=== PATIENT | female | born 1955 | race Two or more races ===

== ENCOUNTER 2018-03-16 21:03 | Inpatient (IN) | payer MEDICAID ==
[~2018-03-16] VITALS: Ht 165.1 cm; Wt 78.5 kg
[2018-03-16 21:29] LABS: BASOPHILS % (AUTO) 0.5 % (0.0-2.0); EOSINOPHILS % (AUTO) 2.7 % (0.0-6.0); HEMATOCRIT 40 % (33-45); HEMOGLOBIN 13.8 g/dL (11.5-14.8); LYMPHOCYTES # (AUTO) 2.1 /CMM (0.8-4.8); LYMPHOCYTES % (AUTO) 29.6 % (20.0-44.0); MEAN CORPUSCULAR HEMOGLOBIN 32 PG (26.0-33.0); MEAN CORPUSCULAR HGB CONC 35 g/dl (31.0-36.0); MEAN CORPUSCULAR VOLUME 92 fL (82-100); MONOCYTES # (AUTO) 0.4 /CMM (0.1-1.30); MONOCYTES % (AUTO) 5.7 % (2.0-12.0); NEUTROPHILS # (AUTO) 4.4 /CMM (1.8-8.9); NEUTROPHILS % (AUTO) 61.5 % (43.0-81.0); PLATELET COUNT (AUTO) 176 /CMM (150-450); RDW COEFFICIENT OF VARIATION 12.1 (11.5-15.0); RED BLOOD CELL COUNT(AUTO) 4.35 MIL/uL (4.0-5.2); WHITE BLOOD COUNT (AUTO) 7.1 K/uL (4.3-11.0)
[2018-03-16 21:39] LABS: CALCIUM, SERUM 8.7 mg/dL (8.5-10.1); CARBON DIOXIDE 27 mmol/L (21-32); CHLORIDE 104 mmol/L (98-107); CREATININE 0.9 mg/dL (0.6-1.3); GLUCOSE 99 mg/dL (74-106); POTASSIUM 3.2 mmol/L (3.5-5.1); SODIUM SERUM 139 mmol/L (136-145); UREA NITROGEN, BLOOD 17 mg/dL (7-18)
[2018-03-16 21:41] LABS: INR 0.98 (0.85-1.15)
[2018-03-16 21:48] LABS: TROPONIN I < 0.017 ng/mL (0.00-0.056)
[2018-03-16] MEDS ORDERED: POTASSIUM CHLORIDE 20 MEQ TAB.PRT.SR PO ONE (23:55)
[2018-03-17] VITALS (8 sets, daily range): BP systolic 135–171; BP diastolic 74–91
[2018-03-17] MEDS ORDERED: POTASSIUM CHLORIDE 20 MEQ TAB.PRT.SR PO ONE
[2018-03-17] MEDS ORDERED: ASPIRIN 325 MG TABLET PO ONE (00:30)
[2018-03-17] MEDS ORDERED: ONDANSETRON HCL/PF 4 MG/2 ML VIAL IVP PRN ×2 (00:30→00:45)
[2018-03-17] MEDS ORDERED: ENOXAPARIN SODIUM 40 MG/0.4 ML DISP.SYRIN SQ SCH (00:30)
[2018-03-17] MEDS ORDERED: Z GUARD REMEDY 2 OZ OINT TP PRN ×2 (00:30→00:45)
[2018-03-17] MEDS ORDERED: HYDROCODONE/APAP 5/325MG 1 EACH TABLET PO PRN ×2 (00:30→00:45)
[2018-03-17] MEDS ORDERED: MAGNESIUM HYDROXIDE 30 ML UDC PO PRN ×2 (00:30→00:45)
[2018-03-17] MEDS ORDERED: CLONIDINE HCL 0.1 MG TABLET PO PRN ×2 (00:30→00:45)
[2018-03-17] MEDS ORDERED: MAG HYDROX/AL HYDROX/SIMETH 30 ML UDC PO PRN ×2 (00:30→00:45)
[2018-03-17] MEDS ORDERED: ACETAMINOPHEN 325 MG TABLET PO PRN ×2 (00:30→00:45)
[2018-03-17] MEDS ORDERED: ASPIRIN 325 MG TABLET ONE (00:38)
[2018-03-17] MEDS ORDERED: BLOOD SUGAR DIAGNOSTIC 1 EACH STRIP IN SCH ×3 (06:00→07:30)
[2018-03-17 06:11] LABS: BASOPHILS % (AUTO) 0.1 % (0.0-2.0); EOSINOPHILS % (AUTO) 4.1 % (0.0-6.0); HEMATOCRIT 39 % (33-45); HEMOGLOBIN 13.1 g/dL (11.5-14.8); LYMPHOCYTES # (AUTO) 1.7 /CMM (0.8-4.8); LYMPHOCYTES % (AUTO) 30.2 % (20.0-44.0); MEAN CORPUSCULAR HEMOGLOBIN 31 PG (26.0-33.0); MEAN CORPUSCULAR HGB CONC 34 g/dl (31.0-36.0); MEAN CORPUSCULAR VOLUME 92 fL (82-100); MONOCYTES # (AUTO) 0.5 /CMM (0.1-1.30); MONOCYTES % (AUTO) 8.4 % (2.0-12.0); NEUTROPHILS # (AUTO) 3.3 /CMM (1.8-8.9); NEUTROPHILS % (AUTO) 57.2 % (43.0-81.0); PLATELET COUNT (AUTO) 149 /CMM (150-450); RDW COEFFICIENT OF VARIATION 12.7 (11.5-15.0); WHITE BLOOD COUNT (AUTO) 5.7 K/uL (4.3-11.0)
[2018-03-17 06:19] LABS: INR 0.96 (0.87-1.13)
[2018-03-17 06:32] LABS: ALBUMIN 3.5 g/dL (3.4-5.0); BILIRUBIN,TOTAL 0.8 mg/dL (0.2-1.0); CALCIUM, SERUM 8.3 mg/dL (8.5-10.1); CREATININE 0.7 mg/dL (0.6-1.3); POTASSIUM 3.8 mmol/L (3.5-5.1); TOTAL PROTEIN, SERUM 6.8 g/dL (6.4-8.2)
[2018-03-17 06:36] LABS: THYROID STIMULATING HORMONE 1.737 uIU/mL (0.358-3.74)
[2018-03-17] MEDS: BLOOD SUGAR DIAGNOSTIC 1 EACH STRIP IN SCH ×4 (07:49→22:30)
[2018-03-17] MEDS ORDERED: BUPR-51 PO (08:10)
[2018-03-17] MEDS ORDERED: TRAZ-213 PO (08:10)
[2018-03-17] MEDS ORDERED: TEMA30CA PO (08:10)
[2018-03-17] MEDS ORDERED: MULT-24 PO (08:10)
[2018-03-17] MEDS ORDERED: CITA20TA19 PO (08:10)
[2018-03-17] MEDS: ASPIRIN EC 325 MG TABLET.DR PO SCH (08:47)
[2018-03-17] MEDS: ATORVASTATIN 10 MG TABLET PO SCH (08:47)
[2018-03-17] MEDS: VALSARTAN 80 MG TABLET PO SCH (08:47)
[2018-03-17] MEDS: ENOXAPARIN SODIUM 40 MG/0.4 ML DISP.SYRIN SQ SCH (08:49)
[2018-03-17] MEDS ORDERED: ASPIRIN EC 325 MG TABLET.DR PO SCH (09:00)
[2018-03-17 09:31] LABS: THYROID STIMULATING HORMONE 1.733 uIU/mL (0.358-3.74)
[2018-03-17] MEDS ORDERED: TEMAZEPAM 15 MG CAPSULE PO ONE (22:00)
[2018-03-18] VITALS: BP 157/91
[2018-03-18 00:40] VITALS: BP 157/91
[2018-03-18 04:00] VITALS: BP 143/72
[2018-03-18 04:28] VITALS: BP 143/72
[2018-03-18 06:00] LABS: BASOPHILS % (AUTO) 0.5 % (0.0-2.0); EOSINOPHILS % (AUTO) 4.4 % (0.0-6.0); HEMATOCRIT 39 % (33-45); HEMOGLOBIN 13.3 g/dL (11.5-14.8); LYMPHOCYTES # (AUTO) 1.4 /CMM (0.8-4.8); LYMPHOCYTES % (AUTO) 28.5 % (20.0-44.0); MEAN CORPUSCULAR HEMOGLOBIN 31 PG (26.0-33.0); MEAN CORPUSCULAR HGB CONC 34 g/dl (31.0-36.0); MEAN CORPUSCULAR VOLUME 91 fL (82-100); MONOCYTES # (AUTO) 0.4 /CMM (0.1-1.30); MONOCYTES % (AUTO) 7.4 % (2.0-12.0); NEUTROPHILS % (AUTO) 59.2 % (43.0-81.0); PLATELET COUNT (AUTO) 152 /CMM (150-450); RED BLOOD CELL COUNT(AUTO) 4.28 MIL/uL (4.0-5.2); WHITE BLOOD COUNT (AUTO) 5.1 K/uL (4.3-11.0)
[2018-03-18 06:20] LABS: ALANINE AMINOTRANSFERASE 19 U/L (12-78); ALBUMIN 3.4 g/dL (3.4-5.0); ALKALINE PHOSPHATASE 58 U/L (46-116); ASPARTATE AMINOTRANSFERASE 14 U/L (15-37); BILIRUBIN,TOTAL 0.9 mg/dL (0.2-1.0); CALCIUM, SERUM 8.7 mg/dL (8.5-10.1); CARBON DIOXIDE 28 mmol/L (21-32); CHLORIDE 106 mmol/L (98-107); CREATININE 0.6 mg/dL (0.6-1.3); GLUCOSE 104 mg/dL (74-106); MAGNESIUM 2.2 mg/dL (1.8-2.4); PHOSPHORUS 4.3 mg/dL (2.5-4.9); POTASSIUM 3.5 mmol/L (3.5-5.1); SODIUM SERUM 142 mmol/L (136-145); TOTAL PROTEIN, SERUM 6.6 g/dL (6.4-8.2); UREA NITROGEN, BLOOD 14 mg/dL (7-18)
[2018-03-18 06:23] LABS: TROPONIN I < 0.017 ng/mL (0.00-0.056)
[2018-03-18] MEDS: BLOOD SUGAR DIAGNOSTIC 1 EACH STRIP IN SCH ×3 (06:30→17:23)
[2018-03-18] MEDS ORDERED: ERGOCALCIFEROL (VITAMIN D 2) 50,000 UNIT CAPSULE PO SCH (07:30)
[2018-03-18 08:00] VITALS: BP 152/79
[2018-03-18] MEDS ORDERED: REGADENOSON 0.4 MG/5 ML DISP.SYRIN IVP ONE (08:00)
[2018-03-18] MEDS ORDERED: AMLODIPINE BESYLATE 10 MG TABLET PO SCH (09:00)
[2018-03-18] MEDS: ASPIRIN EC 325 MG TABLET.DR PO SCH (09:26)
[2018-03-18] MEDS: VALSARTAN 80 MG TABLET PO SCH (09:27)
[2018-03-18] MEDS: ATORVASTATIN 10 MG TABLET PO SCH (09:27)
[2018-03-18] MEDS: ENOXAPARIN SODIUM 40 MG/0.4 ML DISP.SYRIN SQ SCH (09:28)
[2018-03-18] MEDS ORDERED: VALS80TA2 PO (12:15)
[2018-03-18] MEDS ORDERED: ASPI-1152 PO (12:15)
[2018-03-18 14:23] LABS: APPEARANCE,URINE CLEAR (CLEAR); BILIRUBIN,URINE NEGATIVE (NEGATIVE); BLOOD, URINE NEGATIVE Ery/uL (NEGATIVE); COLOR,URINE YELLOW (YELLOW); KETONES,URINE NEGATIVE (NEGATIVE); LEUKOCYTE ESTERASE ,URINE TRACE (NEGATIVE); NITRITE, URINE NEGATIVE (NEGATIVE); PROTEIN,URINE NEGATIVE (NEGATIVE); UGLUCOSE NEGATIVE (NEGATIVE); UROBILINOGEN,URINE 0.2 EU/dL (0.2)
[2018-03-18 14:52] LABS: BACTERIA,URINE Few /HPF (None Seen); RBC,URINE 0-2 /HPF (0-2); SQUAMOUS EPITHELIAL CELL,UR Few /HPF (None Seen)
[2018-03-18 16:00] VITALS: BP 131/82
== END 2018-03-18 18:35 | disposition home or self-care (01) | DRG 47 ==
LOC: ER 21:10 → TELE 03-17 01:10 → MED 03-18 08:27
PROVIDERS: ADMIT Internal Medicine; ATTEND Internal Medicine
DX: G45.9 Transient cerebral ischemic attack, unspecified (principal); E55.9 Vitamin D deficiency, unspecified; I16.0 Hypertensive urgency; K29.70 Gastritis, unspecified, without bleeding; F41.9 Anxiety disorder, unspecified; F32.9 Major depressive disorder, single episode, unspecified; E87.6 Hypokalemia
CPT/HCPCS: 36415; 70450-TC; 70551-TC; 71045-TC; 80048-TC; 80053-TC; 80061-TC; 80305; 81000-TC; 82306; 82962-TC; 83735-TC; 83880; 84100-TC; 84439-TC; 84443-TC; 84484-TC; 85025-TC; 85652-TC; 85730-TC; 87081-TC; 92611-TC; 93307-TC; 97110-TC; 97112-TC; 97116-TC; 97530-TC; A4606; A9502; J1650; J2785; Z7610

== ENCOUNTER 2020-11-15 10:42 | Emergency (ER) | payer MEDICARE, OTHER ==
[~2020-11-15] VITALS: Ht 170.2 cm; Wt 76.7 kg
[~2020-11-15 10:42] MED LIST: ASPI-1420 PO; BUPR-51 PO; CITA20TA19 PO; MULT-24 PO; TEMA30CA PO; TRAZ-252 PO; VALS80TA2 PO
--- NOTE | 2020-11-15 10:50 | NUR ---
PT BIB FAMILY TO ER BED 13 C/O L EYE PAIN DESCRIBING IT SHARP AND GRADUALLY WORSENING SINCE 0700. PT DENIES VISION LOSS BUT HAVING HARD TIME OPENING HER EYE. HX OF HYPERTENSION. NORMAL B/P MANAGER PLAN. ROOMED. VSS. AWAITING MD TILLEY.
--- NOTE | 2020-11-15 11:04 | NUR ---
DR DESHPANDE AT BEDSIDE FOR EVAL.
[2020-11-15] MEDS ORDERED: FLUORESCEIN SODIUM OPHTH 1 EA STRIP ONE (11:07)
[2020-11-15] MEDS: FLUORESCEIN SODIUM OPHTH 1 EA STRIP OP ONE (11:30)
[2020-11-15] MEDS: PROPARACAINE HCL OPHTH 15 ML BOTTLE OP ONE (11:30)
[2020-11-15 11:38] VITALS: BP 142/79
--- NOTE | 2020-11-15 11:38 | NUR ---
Patient discharged to home in stable condition. Written and verbal after care instructions given. Patient verbalizes understanding of instruction.
== END 2020-11-15 11:39 | disposition home or self-care (01) ==
LOC: ER 10:51
DX: S05.02XA Injury of conjunctiva and corneal abrasion without foreign body, left eye, initial encounter (principal); I10 Essential (primary) hypertension; F32.9 Major depressive disorder, single episode, unspecified; G47.00 Insomnia, unspecified; Z90.49 Acquired absence of other specified parts of digestive tract; Z79.82 Long term (current) use of aspirin; Z79.899 Other long term (current) drug therapy; X58.XXXA Exposure to other specified factors, initial encounter; Y93.89 Activity, other specified; Y92.89 Other specified places as the place of occurrence of the external cause; Y99.8 Other external cause status

== ENCOUNTER 2021-04-19 23:01 | Inpatient (IN) | payer MEDICARE, OTHER ==
[~2021-04-19] VITALS: Ht 165.1 cm; Wt 77.1 kg
[~2021-04-19 23:01] MED LIST changes: -BUPR-51 PO; +BUPR-54 PO
[2021-04-19] MEDS ORDERED: NITROGLYCERIN 0.4 MG/TAB BOTTLE ONE (23:15)
[2021-04-19] MEDS ORDERED: ASPIRIN 325 MG TABLET ONE (23:16)
--- NOTE | 2021-04-19 23:21 | NUR ---
PATIENT CAME TO ER BED 10 BIB PARTNER FOR MIDSTERNAL CHEST PRESSURE PAIN RADIATING TO THE BILATERAL SHOULDERS, MORESO LEFT SHOULDER. PATIENT IS ALERT AND ORIENTED x4. DENIES SHORTNESS OF BREATH. PATIENT IS CURRENTLY TAKING LEVOFLOXACIN FOR UTI. SAW PRIMARY MD YESTERDAY. PATIENT IS CONNECTED TO THE HYBRID DERIVATIVES TRADER. PARTNER AT BEDSIDE FOR TRANSLATION.
[2021-04-19] MEDS ORDERED: NITROGLYCERIN 0.4 MG/TAB BOTTLE SL ONE (23:30)
[2021-04-19] MEDS ORDERED: ASPIRIN 325 MG TABLET PO ONE (23:30)
[2021-04-19 23:34] LABS: WHITE BLOOD COUNT (AUTO) 8.1 K/uL (4.3-11.0)
[2021-04-19 23:35] LABS: CALCIUM, SERUM 8.5 mg/dL (8.5-10.1); CARBON DIOXIDE 29 mmol/L (21-32); CHLORIDE 99 mmol/L (98-107); CREATININE 0.8 mg/dL (0.6-1.3); GLUCOSE 111 mg/dL (74-106); POTASSIUM 3.1 mmol/L (3.5-5.1); SODIUM SERUM 140 mmol/L (136-145); UREA NITROGEN, BLOOD 18 mg/dL (7-18)
[2021-04-19 23:43] LABS: BASOPHILS % (AUTO) 0.5 % (0.0-2.0); EOSINOPHILS % (AUTO) 2.4 % (0.0-6.0); HEMATOCRIT 39 % (33-45); HEMOGLOBIN 12.9 g/dL (11.5-14.8); LYMPHOCYTES # (AUTO) 1.9 K/uL (0.8-4.8); LYMPHOCYTES % (AUTO) 23.3 % (20.0-44.0); MEAN CORPUSCULAR HGB CONC 33 g/dl (31.0-36.0); MEAN CORPUSCULAR VOLUME 94 fL (82-100); MONOCYTES # (AUTO) 0.5 K/uL (0.1-1.30); MONOCYTES % (AUTO) 6.6 % (2.0-12.0); NEUTROPHILS # (AUTO) 5.4 K/uL (1.8-8.9); NEUTROPHILS % (AUTO) 67.2 % (43.0-81.0); PLATELET COUNT (AUTO) 202 K/uL (150-450); RED BLOOD CELL COUNT(AUTO) 4.08 MIL/uL (4.0-5.2)
[2021-04-20] VITALS (7 sets, daily range): BP systolic 134–156; BP diastolic 77–97
--- NOTE | 2021-04-20 | NUR ---
PT DENIES HAVING CHEST PRESSURE AFTER 1SL NITRO GIVEN.
--- NOTE | 2021-04-20 00:30 | NUR ---
CALLED LAB REGARDING COVID SWAB.
[2021-04-20] MEDS ORDERED: NITROGLYCERIN PACKET 1 GM PACKET ONE (00:56)
[2021-04-20] MEDS ORDERED: ALPR1TAB2 PO (01:00)
[2021-04-20] MEDS ORDERED: TEMA30CA5 PO (01:00)
[2021-04-20] MEDS ORDERED: NITROGLYCERIN PACKET 1 GM PACKET TOP ONE (01:00)
--- NOTE | 2021-04-20 02:46 | NUR ---
REPORT GIVEN TO TU MARRERO FOR BENJIE
--- NOTE | 2021-04-20 03:05 | NUR ---
PATIENT CAME FROM ER, AWAKE, A/O X4. NO S/S OF DISTRESS NOTED. CALL LIGHT WITHIN REACH. BED IN LOWEST AND LOCKED POSITION. AMBULATORY. NO COMPLAIN OF CHEST P[AIN JUST LITTLE HEADACHE. INFORMED DR MORELOS OF ADMISSION ORDERS.
--- NOTE | 2021-04-20 04:43 | NUR ---
STILL NO ORDERS YET FROM , CHARGE NURSE MADE AWARE WILL FOLLOW UP BY CHARGE NURSE SIMONE.
--- NOTE | 2021-04-20 05:38 | NUR ---
RECEIVED A CALL FROM DR YIP, INFORMED RE: ADMISSION ORDERS. MD WILL PLACE AN ORDERS.
[2021-04-20] MEDS ORDERED: NITROGLYCERIN 0.4 MG/TAB BOTTLE SL PRN (06:00)
[2021-04-20] MEDS ORDERED: ONDANSETRON HCL/PF 4 MG/2 ML VIAL IVP PRN (06:00)
[2021-04-20] MEDS ORDERED: MAG HYDROX/AL HYDROX/SIMETH 30 ML UDC PO PRN (06:00)
[2021-04-20] MEDS ORDERED: MORPHINE SULFATE INJ 2 MG/ML DISP.SYRIN IV PRN (06:00)
--- NOTE | 2021-04-20 07:15 | NUR ---
BUCKET WASH OPERATOR OPENING NOTES RECEIVED PATIENT RESTING IN BED. PATIENT IS A/O X4, ABLE TO MAKE NEEDS KNOWN. PATIENT IS BREATHING EVENLY AND NONLABORED ON ROOM AIR. NO SIGNS OF DISTRESS NOTED. PATIENT IS ON TELE MONITOR SHOWING SINUS RHYTHM. PATIENT HAS IV ACCESS ON RAC # 20, PATENT AND INTACT. PATIENT DOES NOT COMPLAIN OF PAIN AT THIS TIME. SAFETY MEASURES ARE IN PLACE: BED LOW, LOCKED, CALL LIGHT WITHIN REACH SIDE RAILS UP X2. WILL CONTINUE TO MONITOR
[2021-04-20] MEDS ORDERED: LOSA50TA39 PO (07:42)
[2021-04-20] MEDS ORDERED: METO25TA20 PO (07:42)
[2021-04-20] MEDS ORDERED: ALPRAZOLAM 1 MG TABLET PO PRN (10:00)
[2021-04-20 10:14] LABS: MAGNESIUM 2.3 mg/dL (1.8-2.4)
[2021-04-20] MEDS: ASPIRIN 81 MG TAB.CHEW PO SCH (10:31)
[2021-04-20] MEDS: POTASSIUM CHLORIDE 20 MEQ TAB.PRT.SR PO SCH ×3 (10:31→11:53)
[2021-04-20] MEDS: LOSARTAN POTASSIUM 50 MG TABLET PO SCH (10:31)
[2021-04-20] MEDS: ATORVASTATIN 10 MG TABLET PO SCH (10:32)
[2021-04-20] MEDS: METOPROLOL TARTRATE 25 MG TABLET PO SCH ×2 (10:36→16:05)
[2021-04-20] MEDS: AMLODIPINE BESYLATE 5 MG TABLET PO SCH (10:36)
[2021-04-20 10:37] LABS: THYROID STIMULATING HORMONE 1.926 uIU/mL (0.358-3.74)
[2021-04-20] MEDS ORDERED: IV NS 0.9% 250 ML IV ONE (11:10)
[2021-04-20] MEDS ORDERED: IOHEXOL-350 100 ML VIAL IV ONE (11:10)
--- NOTE | 2021-04-20 17:00 | NUR ---
RN NOTE PATIENT HAS IV ACCESS RAC # 20 GAUGE, PATIENT NEEDED 18# GAUGE FOR CTA PROCEDURE. MULTIPLE IV ATTEMPTS. MD ORDERED FOR MIDLINE INSERTION. MIDLINE PLACED 18# GAUGE AND RAC 20 GAUGE REMOVED. WILL CONTINUE TO MONITOR
[2021-04-20] MEDS: CITALOPRAM HYDROBROMIDE 20 MG TABLET PO SCH (17:20)
[2021-04-20] MEDS ORDERED: QUETIAPINE FUMARATE 25 MG TABLET PO PRN (17:30)
--- NOTE | 2021-04-20 18:19 | NUR ---
MS RN CLOSING NOTES PATIENT RESTING IN BED. PATIENT IS A/O X4, ABLE TO MAKE NEEDS KNOWN. PATIENT IS BREATHING EVENLY AND NONLABORED ON ROOM AIR. NO SIGNS OF DISTRESS NOTED. . PATIENT HAS IV ACCESS ON R UPPER ARM 18 # GAUGE MIDLINE, PATENT AND INTACT. PATIENT DOES NOT COMPLAIN OF PAIN AT THIS TIME. ALL MEDICATIONS GIVEN ORDERED. PATIENT HAS CTA ORDERED, CONSENT SIGNED. SAFETY MEASURES ARE IN PLACE: BED LOW, LOCKED, CALL LIGHT WITHIN REACH SIDE RAILS UP X2. WILL ENDORSE TO ON COMING SHIFT
--- NOTE | 2021-04-20 19:30 | NUR ---
RN OPENING NOTE PATIENT IN BED, AWAKE, A/O X 4. DOES NOT COMPLAIN OF ANY CHEST PAIN/ DISCOMFORT AT THIS TIME. PATIENT IS ABLE TO MAKE NEEDS KNOWN. IV ACCESS PATENT AND INTACT. PATIENT'S BREATHING EVEN AND UNLABORED, NOT IN ANY APPARENT DISTRESS. SAFETY MEASURES IN PLACE: BED LOCKED AND IN LOWEST POSITION, CALL LIGHT WITHIN REACH, SIDE RAILS UP. WILL MONITOR PATIENT CLOSELY.
[2021-04-20] MEDS: TEMAZEPAM 15 MG CAPSULE PO PRN (21:18)
[2021-04-21 06:26] LABS: BASOPHILS % (AUTO) 0.5 % (0.0-2.0); EOSINOPHILS % (AUTO) 4.2 % (0.0-6.0); HEMATOCRIT 40 % (33-45); HEMOGLOBIN 13.2 g/dL (11.5-14.8); LYMPHOCYTES # (AUTO) 1.6 K/uL (0.8-4.8); LYMPHOCYTES % (AUTO) 29.9 % (20.0-44.0); MEAN CORPUSCULAR HGB CONC 33 g/dl (31.0-36.0); MEAN CORPUSCULAR VOLUME 95 fL (82-100); MONOCYTES # (AUTO) 0.4 K/uL (0.1-1.30); MONOCYTES % (AUTO) 7.6 % (2.0-12.0); NEUTROPHILS # (AUTO) 3.2 K/uL (1.8-8.9); NEUTROPHILS % (AUTO) 57.8 % (43.0-81.0); PLATELET COUNT (AUTO) 154 K/uL (150-450); RED BLOOD CELL COUNT(AUTO) 4.16 MIL/uL (4.0-5.2); WHITE BLOOD COUNT (AUTO) 5.5 K/uL (4.3-11.0)
--- NOTE | 2021-04-21 06:56 | NUR ---
RN CLOSING NOTE PATIENT LAYING IN BED, EYES CLOSED, EASILY AWAKENED. PATIENT DENIES ANY CHEST PAIN/PAIN AT THIS MOMENT. WILNER MIDLINE STILL PATENT AND INTACT. BREATHING EVEN AND UNLABORED, TOLERATING ROOM AIR. ALL NEEDS MET AND ATTENDED, ALL ORDERS CARRIED OUT. SAFETY MEASURES MAINTAINED. WILL ENDORSE TO DAY SHIFT NURSE FOR BENJIE.
--- NOTE | 2021-04-21 07:09 | NUR ---
MS RN OPENING NOTES RECEIVED PATIENT RESTING IN BED. PATIENT IS A/O X4, ABLE TO MAKE NEEDS KNOWN. PATIENT IS BREATHING EVENLY AND NONLABORED ON ROOM AIR. NO SIGNS OF DISTRESS NOTED. PATIENT IS ON TELE MONITOR SHOWING SINUS RHYTHM. PATIENT HAS IV ACCESS ON R UPPER ARM MIDLINE # 18 GAUGE PATENT AND INTACT. PATIENT DOES NOT COMPLAIN OF PAIN AT THIS TIME. PATIENT AWAITING CTA, CONSENT DONE SAFETY MEASURES ARE IN PLACE: BED LOW, LOCKED, CALL LIGHT WITHIN REACH SIDE RAILS UP X2. WILL CONTINUE TO MONITOR
[2021-04-21 07:25] LABS: CALCIUM, SERUM 8.6 mg/dL (8.5-10.1); CREATININE 0.6 mg/dL (0.6-1.3); MAGNESIUM 2.2 mg/dL (1.8-2.4); PHOSPHORUS 4.3 mg/dL (2.5-4.9); POTASSIUM 3.9 mmol/L (3.5-5.1)
[2021-04-21 08:00] VITALS: BP 130/74
[2021-04-21] MEDS: METOPROLOL TARTRATE 25 MG TABLET PO SCH ×2 (08:12→16:23)
[2021-04-21] MEDS: ASPIRIN 81 MG TAB.CHEW PO SCH (08:12)
[2021-04-21] MEDS: ATORVASTATIN 10 MG TABLET PO SCH (08:12)
[2021-04-21] MEDS: LOSARTAN POTASSIUM 50 MG TABLET PO SCH (08:12)
[2021-04-21] MEDS: AMLODIPINE BESYLATE 5 MG TABLET PO SCH (08:12)
[2021-04-21] MEDS: MULTIVITAMINS,THERAGRAN 1 UDTAB TABLET PO SCH (08:12)
[2021-04-21] MEDS ORDERED: IOHEXOL-350 100 ML VIAL IV ONE (08:43)
[2021-04-21] MEDS ORDERED: IV NS 0.9% 250 ML IV ONE (08:43)
[2021-04-21] MEDS ORDERED: METOPROLOL TARTRATE INJ 5 MG/5 ML AMPUL ONE (09:13)
--- NOTE | 2021-04-21 09:23 | NUR ---
consented to CTA heart; aox4 denies CP or SOb. given Metoprolol 5 mg IVP x1 and NTG 0.4 mg Sl x1; toletated procedure; report given to STEPHANIE MARRERO; US currently being done on pt by tech
[2021-04-21] MEDS ORDERED: NITROGLYCERIN 0.4 MG/TAB BOTTLE SL ONE ×2 (09:30)
[2021-04-21] MEDS ORDERED: IV NS 0.9% 500 ML IV ONE (09:30)
[2021-04-21] MEDS ORDERED: METOPROLOL TARTRATE INJ 5 MG/5 ML AMPUL IVP PRN ×2 (09:30)
[2021-04-21 16:00] VITALS: BP 132/89
[2021-04-21] MEDS: CITALOPRAM HYDROBROMIDE 20 MG TABLET PO SCH (17:18)
--- NOTE | 2021-04-21 18:27 | NUR ---
MS RN CLOSING NOTES PATIENT RESTING IN BED. PATIENT IS A/O X4, ABLE TO MAKE NEEDS KNOWN. PATIENT IS BREATHING EVENLY AND NONLABORED ON ROOM AIR. NO SIGNS OF DISTRESS NOTED. . PATIENT HAS IV ACCESS ON R UPPER ARM 18 # GAUGE MIDLINE, PATENT AND INTACT. PATIENT DOES NOT COMPLAIN OF PAIN AT THIS TIME. ALL MEDICATIONS GIVEN ORDERED. AWAITING FOR CARDIOLOGY CLEARANCE. SAFETY MEASURES ARE IN PLACE: BED LOW, LOCKED, CALL LIGHT WITHIN REACH SIDE RAILS UP X2. WILL ENDORSE TO ON COMING SHIFT
[2021-04-21 20:00] VITALS: BP 114/70
--- NOTE | 2021-04-21 20:00 | NUR ---
MS RN OPENING NOTE RECEIVED PT AWAKE IN BED, RESTING A/OX4, PT ON RA, NO SOB OR DISTRESS NOTED, NO C/O PAIN; RESPIRATIONS EVEN AND UNLABORED, WILNER MIDLINE NOTED G#18 SL INTACT, PATENT, AND FLUSHING WELL. FALL AND SAFETY MEASURES IN PLACE AND MAINTAINED AT ALL TIMES: BED ALARM ON, BED IN LOW AND LOCKED POSITION, HOB ELEVATED TO SEMI FOWLERS POSITION, CALL LIGHT AND TABLE WITHIN REACH, SIDE RAILS UP X2. WILL CONTINUE WITH PLAN OF CARE
[2021-04-21] MEDS: TEMAZEPAM 15 MG CAPSULE PO PRN (21:03)
--- NOTE | 2021-04-21 21:03 | NUR ---
PT C/O INABILITY TO SLEEP AT THIS TIME. VS BP 114/66, HR 70, RR 20, T 97.7, SPO2 97.PER PT REQUEST TEMAZEPAM 30MG PO HS PRN FOR SLEEP, ADMINISTERED AT THIS TIME. WILL CONTINUE TO MONITOR
--- NOTE | 2021-04-22 07:00 | NUR ---
RN CLOSING NOTE PT RESTING IN BED COMFORTABLY AT THIS TIME, EASY TO AROUSE. PT REMAINED STABLE THROUGHOUT SHIFT. ALL NEEDS, MEDICATIONS, AND CARE ADMINISTERED ANTICIPATED PER ORDER; PT ENCOURAGED TO REPOSITION Q2HR AND PRN. SAFETY PRECAUTIONS IN PLACE AND MAINTAINED AT ALL TIMES. BED IN LOWEST LOOCKED POSITION, HOB ELEVATED, SIDE RAILS UP X2. CALL LIGHT AND TABLE WITHIN REACH. WILL ENDORSE TO DAY SHIFT NURSE FOR BENJIE.
--- NOTE | 2021-04-22 07:20 | NUR ---
ms rn received on bed, awake,alert,orientedx4,not in any form of distress,respirations even and unlabored, no sob noted. lungs are clear,abdomen soft,positive bowel sounds,denies pain at this time, will monitor patient's condition
[2021-04-22 08:00] VITALS: BP 143/91
--- NOTE | 2021-04-22 08:30 | NUR ---
ms flores breakfast served,due meds given,tolerated well.
[2021-04-22] MEDS: MULTIVITAMINS,THERAGRAN 1 UDTAB TABLET PO SCH (10:06)
[2021-04-22] MEDS: METOPROLOL TARTRATE 25 MG TABLET PO SCH (10:07)
[2021-04-22] MEDS: LOSARTAN POTASSIUM 50 MG TABLET PO SCH (10:07)
[2021-04-22 10:08] VITALS: BP 143/91
[2021-04-22] MEDS: ASPIRIN 81 MG TAB.CHEW PO SCH (10:08)
[2021-04-22] MEDS: AMLODIPINE BESYLATE 5 MG TABLET PO SCH (10:08)
[2021-04-22] MEDS: ATORVASTATIN 10 MG TABLET PO SCH (10:08)
[2021-04-22] MEDS ORDERED: AMLO-212 PO (10:25)
[2021-04-22] MEDS ORDERED: ASPI-1169 PO (10:25)
--- NOTE | 2021-04-22 11:00 | NUR ---
ms mark was seen by savage parker w/ orders made and carried out.
--- NOTE | 2021-04-22 11:30 | NUR ---
ms rn patient's instructions given,to have a follow up w/ primary in one week, patient discharged accompanied by a friend w/ prescription.
== END 2021-04-22 11:45 | disposition home or self-care (01) | DRG 392 ==
LOC: ER 23:02 → TELE 04-20 02:55 → EDBD 04-20 02:55 → MED 04-20 12:49
PROVIDERS: ADMIT Nurse Practitioner Acute Care; ATTEND Nurse Practitioner Acute Care
PROC: 05H533Z Insertion of Infusion Device into Right Subclavian Vein, Percutaneous Approach (ICD-10-PCS; principal; 2021-04-20)
PROC: B546ZZA Ultrasonography of Right Subclavian Vein, Guidance (ICD-10-PCS; 2021-04-20)
DX: K21.9 Gastro-esophageal reflux disease without esophagitis (principal); E78.5 Hyperlipidemia, unspecified; E87.6 Hypokalemia; I10 Essential (primary) hypertension; Z90.49 Acquired absence of other specified parts of digestive tract; Z79.82 Long term (current) use of aspirin; G43.909 Migraine, unspecified, not intractable, without status migrainosus; F41.0 Panic disorder [episodic paroxysmal anxiety]; G47.00 Insomnia, unspecified; F32.9 Major depressive disorder, single episode, unspecified; N28.1 Cyst of kidney, acquired; Z20.822 Contact with and (suspected) exposure to COVID-19
CPT/HCPCS: 36415; 71045-TC; 75574; 76700-TC; 80048-TC; 80061-TC; 83735-TC; 84100-TC; 84439-TC; 84443-TC; 84484-TC; 85025-TC; 87081-TC; 93307-TC; C9803; G0378; J3490; J7050; Q9967

== ENCOUNTER 2024-04-02 15:01 | Emergency (ER) | payer MEDICARE, OTHER ==
[~2024-04-02] VITALS: Ht 154.9 cm; Wt 78.0 kg
[~2024-04-02 15:01] MED LIST changes: +ALPR1TAB2 PO; +AMLO-212 PO; +ASPI-1169 PO; -ASPI-1420 PO; -BUPR-54 PO; +LOSA50TA39 PO; +METO25TA20 PO; -TRAZ-252 PO; -VALS80TA2 PO
[2024-04-02] MEDS ORDERED: ONDANSETRON HCL/PF 4 MG/2 ML VIAL ONE (15:44)
[2024-04-02] MEDS ORDERED: MECLIZINE HCL 25 MG TABLET ONE (15:44)
[2024-04-02] MEDS ORDERED: FAMOTIDINE/PF INJ 20 MG/2 ML VIAL IV ONE (15:44)
[2024-04-02] MEDS: IV NS 0.9% 1,000 ML BAG IV ONE (15:52)
[2024-04-02 15:53] LABS: BASOPHILS % (AUTO) 0.6 % (0.0-2.0); EOSINOPHILS # (AUTO) 0.3 K/uL (0.0-0.7); EOSINOPHILS % (AUTO) 4.6 % (0.0-6.0); HEMATOCRIT 39 % (33-45); HEMOGLOBIN 13.3 g/dL (11.5-14.8); LYMPHOCYTES # (AUTO) 1.6 K/uL (0.8-4.8); LYMPHOCYTES % (AUTO) 28.3 % (20.0-44.0); MEAN CORPUSCULAR HEMOGLOBIN 32 PG (26.0-33.0); MEAN CORPUSCULAR HGB CONC 34 g/dl (31.0-36.0); MEAN CORPUSCULAR VOLUME 93 fL (82-100); MONOCYTES # (AUTO) 0.5 K/uL (0.1-1.30); NEUTROPHILS # (AUTO) 3.3 K/uL (1.8-8.9); NEUTROPHILS % (AUTO) 57.5 % (43.0-81.0); PLATELET COUNT (AUTO) 184 K/uL (150-450); RED BLOOD CELL COUNT(AUTO) 4.18 MIL/uL (4.0-5.2); RED CELL DISTRIBUTION WIDTH 13.1 % (11.5-15.0); WHITE BLOOD COUNT (AUTO) 5.7 K/uL (4.3-11.0)
[2024-04-02] MEDS: FAMOTIDINE/PF INJ 20 MG/2 ML VIAL IV ONE (15:53)
[2024-04-02] MEDS: ONDANSETRON HCL/PF 4 MG/2 ML VIAL IVP ONE (15:53)
[2024-04-02] MEDS: MECLIZINE HCL 25 MG TABLET PO ONE (15:54)
[2024-04-02 16:08] LABS: CALCIUM, SERUM 9.2 mg/dL (8.5-10.1); CARBON DIOXIDE 28 mmol/L (21-32); CHLORIDE 103 mmol/L (98-107); CREATININE 0.6 mg/dL (0.6-1.3); GLUCOSE 98 mg/dL (74-106); POTASSIUM 3.6 mmol/L (3.5-5.1); SODIUM SERUM 138 mmol/L (136-145); UREA NITROGEN, BLOOD 17 mg/dL (7-18)
[2024-04-02] MEDS ORDERED: MECL-159 PO (17:53)
[2024-04-02 18:02] VITALS: BP 151/78; TEMP 98; O2SAT 100
== END 2024-04-02 18:04 | disposition home or self-care (01) ==
LOC: ER 15:03
DX: H81.399 Other peripheral vertigo, unspecified ear (principal); I10 Essential (primary) hypertension; E78.5 Hyperlipidemia, unspecified; Z88.8 Allergy status to other drugs, medicaments and biological substances; Z79.899 Other long term (current) drug therapy
CPT/HCPCS: 99284; 96374; 96361; 96375; 93005; 85025; 80048; 36415; 84484; J8597; J3490; J2405; J7030